=== PATIENT | female | born 1945 | race Caucasian/White ===

== ENCOUNTER 2016-10-27 05:41 | Day surgery (SDC) | payer MEDICAID, MEDICARE ==
--- NOTE | 2016-10-16 11:48 | PCM.ANEPRE ---
Anesthesia Pre-Op Review Reason for Review: SURGEON'S REQUEST-"REVIEW PAST SLEEP STUDY RECORD" Anesthesia Recommendations: Proceed with Procedure Additional Comments 71myo woman for bilat lum blair by dr cuevas on 10/27/16. Positive stop bang, Sleep study showed mod obstrucive sleep apnea with disturbance of sleep architecture and clinically significant o2 desaturation events. Refuses to use recommended cpap. ecg shows NSIVCD Cardiac cath 2003 with nl coronaries with elevated filling pressures and diastolic dysfunction, and a small hyperdynamic heart. BMI 37. HgbA1C 6.7. METS are not available because ambulatory limitations secondary to back pain. Suggest ECHO before surgery to assess cardiac function since last study was a cath in 2003. Discussed with Roman Matt who will order the echo and we will then review it before decision to proceed. Chart Reviewed by: Feliz Hull MD, MD Oct 16, 2016 11:48
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
[2016-10-27] VITALS (14 sets, daily range): BP systolic 119–177; BP diastolic 49–77; PULSE 55–74; RESP 16–24; O2SAT 89–100
[~2016-10-27] VITALS: Ht 157.5 cm; Wt 93.2 kg
[~2016-10-27 05:41] MED LIST: ASPI-973 PO; CYCL10TA9 PO; FLUO40CA PO; GABA600T2 PO; HYDR-3740 PO; HYDRALAZINE/HCTZ PO; LISI40TA PO; Lactated Ringer's 1,000 ML IV SCH; METF1000 PO; METO-274 PO; OMEP20CA11 PO; OXYC-466 PO; SIMV40TA5 PO
[2016-10-27] MEDS ORDERED: Ondansetron 2 mg/mL 2 mL Inj ONE (05:42)
[2016-10-27] MEDS ORDERED: Propofol 10,000 mCg/mL 20 mL Inj ONE (05:42)
[2016-10-27] MEDS ORDERED: fentaNYL-PF 50 mCg/mL 2 mL Inj ONE ×2 (05:42→10:38)
[2016-10-27] MEDS ORDERED: Succinylcholine Chloride 20 mg/mL 5 mL Inj ONE (05:42)
[2016-10-27] MEDS ORDERED: Phenylephrine/NS 100 mCg/mL 10 mL Syringe IVPUSH ONE (05:42)
[2016-10-27] MEDS ORDERED: Bupivacaine Liposome 1.3% 20 mL Inj INFILTRATE ONE (06:00)
[2016-10-27] MEDS ORDERED: CeFAZolin Inj 2 GM in IV Premix 1 EACH IV ONE (06:00)
[2016-10-27] MEDS: Bacitracin 50,000 unit Inj IRRIGATION SCH ×2 (06:43→08:11)
[2016-10-27] MEDS: Thrombin Powder 5,000 Unit TOPICAL SCH ×2 (06:44→08:12)
[2016-10-27] MEDS ORDERED: Lactated Ringer's 1,000 ML IV ONE ×3 (06:46→09:28)
[2016-10-27] MEDS ORDERED: TIZA4TAB4 PO (07:07)
[2016-10-27] MEDS ORDERED: HYDR25TA4 PO (07:07)
--- NOTE | 2016-10-27 07:22 | PCM.HPANE ---
Patient Data Surgeon Admitting Provider: Attending Provider:Toni Butcher MD Primary Care Physician:Aman Pelayo MD Other Provider:[facility] Reason for Visit Lumbar Stenosis With Neurogenic Claudication Ht/WT & BMI Height (Feet): 5 Height (Inches): 2 Weight (Kilograms): 93.168 Body Mass Index 37.00 Allergies Coded Allergies: No Known Allergies (Verified , 10/15/16) Past Anesthesia History Anesthesia History: Denies:: Anesthesia Reactions, Malignant Hyperthermia Diabetes History Hx Diabetes?: Yes Type of Diabetes: Type II Glycemic Control: Oral Medication Current Bedside Blood Glucose: 121 MRSA MRSA: No Medications Blood Thinner: Aspirin Hypertension Medication: Yes (HYDRALAZINE/HCTZ,LISINOPRIL) Home Meds Incl Beta Cristy: Yes Date Beta Cristy Taken: Oct 27, 2016 Time Beta Cristy Taken: 0400 Reported Medications Tizanidine 4 Mg Tablet4 Mg PO BID 10/27/16 Hydrochlorothiazide 25 Mg Szmiex81 Mg PO DAILY 30 Days Ref 0 10/27/16 Metformin (Glucophage)1,000 Mg Tablet1,000 Mg PO DAILY Ref 0 10/26/16 Simvastatin 40 Mg Rggnre72 Mg PO HS 30 Days Ref 0 10/15/16 oxyCODONE-Acetaminophen 10-325 mg 1 Each Tablet1-2 Tablet PO Q4H PRN For Pain Ref 0 10/15/16 Omeprazole 20 Mg Capsule.dr20 Mg PO DAILY Ref 0 10/15/16 Metoprolol Succinate ER 100 Mg Tab.er.[id number] Mg PO BID Ref 0 10/15/16 Lisinopril 40 Mg Kijfep18 Mg PO DAILY 30 Days Ref 0 10/15/16 Fluoxetine 40 Mg Snmmjjz14 Mg PO DAILY Ref 0 10/15/16 Aspirin 81 Mg Tbbtwh12 Mg PO DAILY Ref 0 10/15/16 Cyclobenzaprine 10 Mg Fnjrgs10 Mg PO TID PRN Spasm 10/15/16 Hydrocodone-Acetaminophen 10-325 mg 1 Each Tablet1 Tablet PO Q4-6H PRN For Pain Ref 0 10/15/16 Gabapentin 600 Mg Owcjms633 Mg PO TID Ref 0 10/15/16 Discontinued Reported Medications [Hydralazine/Hctz] No Conflict Check1 Tab PO DAILY 50MG/50MG 10/15/16 Metformin (Glucophage)1,000 Mg Tablet1,000 Mg PO BID Ref 0 10/15/16 History History of ENT Problems?: Yes HEENT History: Positive for:: Hearing Problem Denture Type: Full- Upper Hx of Heart Problems?: Yes Cardiovascular History: Positive for:: Cardiac Surgery (HEART CATH 03/2004-WNL ) Edema Hypertension (HYPERLIPIDEMIA) Valvular Heart Disease (MILD-MOD MR,MILD AR,TR) Denies:: Congestive Heart Failure Heart Murmur (NONE HEARD, BUT PT RELATES HX OF MURMUR ECHO 10/19/16 EF 60-65 %) Other History/Comments echo reviewed, EF 65%, Cardiac ROS negative Hx of Respiratory Problem?: Yes Respiratory History: Positive for:: Cough (PT REPORTS URI (CONGESTION,COUGH, SINUS) 10/13/16) Use of C-PAP Machine ([facility]+ REFUSES CPAP SLEEP STUDY 02/2001) Denies:: Tuberculosis Other History/Comment resolving URI one week ago, no symptoms currently Hx Neurologic Problems?: Yes Neurological History: Positive for:: Dizziness (ED VISIT 08/2016 FOR NEAR SYNCOPE RESOLVED W/ IV HYDRATION) Headaches Other Neurological Pertinent: HX OF CHRONIC PAIN SYNDROME W/ VISITS TO PAIN CLINIC IN THE PAST ([facility]?) Hx of GI Problems?: Yes Gastrointestinal History: Positive for:: Gastroesphageal Reflux Hx of Problems?: Yes Other Pertinent History: C/OF [place] Female Hx: Denies:: Currently (HYSTERECOMY AT AGE 37) Skin History: Positive for:: History Skin Disorders? (S/P EXC SKIN MELANOMA) Denies:: Pressure Ulcers Hx Musculoskeletal Problems?: Yes Musculoskeletal History: Positive for:: Fibromyalgia Osteoarthritis Hx of Psycho/Social Problems?: Yes Psycho Social History: Positive for:: Anxiety Hx Depression Hx Surgeries?: Yes (C5-7 ACDF,EXC SKIN MELANOMA,HYST) Hx Any Other Health Problems?: Yes Other History: Positive for:: Cancer (SKIN MELANOMA) Hospitalization Denies:: Endocrine Disease Thyroid Disease History Blood Transfusions: Denies:: Blood Transfusions Hx Diabetes: YesBedside Blood Glucose: 121 Hx Alcohol Use: NoHx Substance Use: No Smoking Status: Former Smoker Have You Smoked inLast 12 mo: YesApprox How Many Cigarettes/day: 1/2 PPD Stop/Bang Treated for Sleep Apnea?: Yes Do You Have a CPAP Machine?: No S-Snoring: Do You Snore Loudly: No T-Tired: feel tired, fatigued: Yes O-Obsered: Observed not breath: No P-Blood Pressure: treated: Yes B- Body Mass Index > 35 kg/m2: Yes A- Age over 50: Yes N- Neck Large Circumference: No G- Gender Male: No KEVIN Total Score: 4 Risk Assessment Category Category 1A: Patient has history of documented sleep apnea, and HAS NOT received any narcotic, sedative or anesthesia administration during this stay. Category 1B: Patient has history of documented sleep apnea, and HAS received any narcotic , sedative or anesthesia administration during this stay Category 2: Patient has SUSPECTED Obstructive Sleep Apnea, and HAS received any narcotic , sedative or anesthesia administration during this stay. Category 3: Patient has SUSPECTED Obstructive Sleep Apnea and HAS NOT received narcotic, sedative or anesthesia administration during this stay. Category 4: Outpatient in Procedural Areas with known sleep apnea or who screen positive for High Risk via the STOP/BANG questionnaire. Exam Exam Vital Signs Vital Signs Date Time Temp Pulse Resp B/P Pulse Ox O2 Delivery O2 Flow Rate FiO2 10/27/16 06:20 72 19 177/62 92 Room Air General Appearance: Alert, Oriented X3, Cooperative HEENT/AIRWAY: MP 2 Lungs: Clear to Auscultation Heart: Exam Unremarkable, Regular Rate/Rhythm Meds/Labs/Diagnostics Admission Meds Current Medications Lactated Ringer's (Lr) 1,000 ml @ ud STK-MED ONCE IV Last administered on t 06:46; Start 10/27/16 at 06:46; Stop 10/27/16 at 06:47; Status DC Bedside Blood Glucose: 121 Plan Impression Patient chart reviewed, patient interviewed and anesthestic plan with risks, benefits, and alternatives discussed, and informed consent obtained. NPO Status: 10/28 ASA Physical Status: ASA3 Severe Disease Anesthetic Support Modalities: [place] Scope Anesthetic Plan: GA Bene/Risks/Altern/Consents: Yes HP Complete Prior to Induction: Yes Rodney Haskins MD Oct 27, 2016 07:22
[2016-10-27] MEDS ORDERED: Gelatin Sponge 12-7 MM TOPICAL ONE ×2 (08:12)
[2016-10-27] MEDS ORDERED: Bupivacaine-MPF 0.25%/EPI 30 mL Inj INJ ONE (08:12)
[2016-10-27] MEDS ORDERED: Lactated Ringer's 500 ML IV PRN (08:31)
[2016-10-27] MEDS ORDERED: Lactated Ringer's 1,000 ML IV SCH (08:31)
[2016-10-27] MEDS ORDERED: MetoCLOpramide 5 mg/mL 2 mL Inj IVPUSH PRN (08:35)
[2016-10-27] MEDS ORDERED: Dexamethasone 4 mg/mL Inj IVPUSH PRN (08:35)
[2016-10-27] MEDS ORDERED: Ondansetron 2 mg/mL 2 mL Inj IVPUSH PRN ×2 (08:35→09:27)
[2016-10-27] MEDS ORDERED: EPHEDrine Sulfate 50 mg/mL Inj IVPUSH PRN (08:35)
[2016-10-27] MEDS ORDERED: Phenylephrine 10,000 mCg/mL Inj IVPUSH PRN (08:35)
--- NOTE | 2016-10-27 08:42 | DRSVH ---
PROCEDURE: X-RAY LUMBAR SPINE, 1 VIEW INDICATIONS: L3-4/L4-5 LAMINECTOMIES TECHNIQUE: 1 views of the lumbar spine were acquired. COMPARISON: [facility], CR, CHEST 1VW (PORTABLE), 08/21/2011, 19:06. [facility], CR, SPINE THORACIC 2VW, 08/21/2011, 19:33. [facility], CR, SPINE LUMB 2 OR 3VW, , 20:30. [facility], MR, MR LUMBAR SPINE WO CON, 04/09/2016, 10:43. FINDINGS: Crosstable lateral lumbar spine demonstrates a radiopaque surgical probe projected over the posterior elements localizing the L4-L5 posterior disc interspace for operative planning. IMPRESSION: Lumbosacral transitional anatomy is present with transitional S1 vertebral body. Surgical localization over the posterior elements at the L4-L5 level. Dr. Butcher given results at 0825 hrs. 10/27/2016. Dictated by: Guillermo Jacobo [facility] Interpreted: Chato Jorge MD on 10/27/2016 at 8:39 Transcribed by: MARINO on 10/27/2016 at 8:41 Approved by: Chato Jorge M.D. on 10/27/2016 at 19:12
[2016-10-27] MEDS ORDERED: Bupivacaine 0.5%/EPI 50 mL Inj INFILTRATE ONE (08:45)
[2016-10-27] MEDS ORDERED: Glucose 40% Oral Gel 15 Gm Tube PO PRN (09:25)
[2016-10-27] MEDS ORDERED: Magnesium Hydroxide 10 mL Oral Concentration PO PRN (09:27)
[2016-10-27] MEDS ORDERED: Polyethylene Glycol (PEG) 17 Gm Powder PO PRN (09:27)
[2016-10-27] MEDS ORDERED: Senna-Docusate 8.6-50 mg Tablet PO PRN (09:27)
[2016-10-27] MEDS ORDERED: Sodium Biphos-Phos 133 mL Enema RECTAL PRN (09:27)
--- NOTE | 2016-10-27 09:29 | PCM.ANEP1 ---
Post Anesthesia Phase 1 PACU Phase 1 Assessment Date of Service: Oct 12, 2016 Vital Signs Vital Signs Date Time Temp Pulse Resp B/P Pulse Ox O2 Delivery O2 Flow Rate FiO2 10/27/16 06:20 72 19 177/62 92 Room Air Anesthetic Administered: GA Level of Alertness: Sleepy, easy to arouse KIRK's with Equal Strength: Yes Pain: No Nausea or Vomiting: No Oxygen Delivery: Simple Mask Lungs: Clear to Auscultation Dermatome Level: Full Sensation (fs 139) Rodney Haskins MD Oct 27, 2016 09:29
[2016-10-27] MEDS: Acetaminophen IV 1,000 MG in IV Premix 1 EACH IV SCH ×3 (09:30→23:11)
[2016-10-27] MEDS ORDERED: Promethazine 12.5 mg/50 mL-NS 12.5 MG in IV Premix 1 EACH IV PRN (09:30)
[2016-10-27] MEDS: HYDROmorphone 1 mg/mL Inj IVPUSH PRN ×4 (09:46→23:48)
--- NOTE | 2016-10-27 09:47 | OP ---
[address] [address] OPERATIVE REPORT PATIENT: JAMILAH HERNÁNDEZ : 1945 MR#: [id number] ADMIT: 10/27/2016 JOB ID: [id number] DATE OF SURGERY: 10/27/2016 SURGEON: Toni Butcher MD PREOPERATIVE DIAGNOSIS(ES): Bilateral L4-5 and left L5-S1 stenosis. POSTOPERATIVE DIAGNOSIS(ES): Bilateral L4-5 and left L5-S1 stenosis. PROCEDURE: Bilateral L4-5 and left L5-S1 partial laminectomy, medial facetectomy, and foraminotomy with microdissection, harvest of subcutaneous fat through separate incision for epidural fat graft. [employer] MEMBER: [employer] provided irrigation, retraction, resection and was medically necessary for the procedure. OPERATIVE PROCEDURE: Patient was brought to the operating room. General anesthesia with oral intubation was administered. The patient was positioned prone on a laminectomy frame. All extremities were padded. Compression boots were applied to the legs. Time-out was performed. The back was prepped and draped in a sterile fashion. IV Ancef was given. The skin and paraspinal muscles were injected with Marcaine containing epinephrine. Under image guidance with x-ray images a midline incision was made from L4-S1. Incision was carried down to the subcutaneous fat layers and on the left side of the L4 and L5 spinous processes. Paraspinous muscles were stripped off the left side of the spine and additional imaging was taken to confirm the levels. The patient's consent read L3-4 and left L4-5 stenosis, however the patient had an extra lumbar vertebrae and a fully formed L5-L6 disc space and so in conference with the reading radiologist during the procedure the operating segments and areas that contained pathology were bilateral L4-5 and left L5-S1. High speed bur was used to remove the inferior portion of the left L4 and left L5 elizabeth-lamina and a few mm of the medial facet under the operating microscope. The final outer bone was removed with Kerrison rongeur. The yellow ligament was opened with a curette and resected with a curette and Kerrison rongeur. Hypertrophied medial facet and yellow ligament was removed and the lateral recess at L4-5 and L5-S1 was decompressed and the proximal foramina for the left L4 and L5 nerve root were also decompressed. The operating table was then tilted to look to the opposite side at the L4-5 level. Spinous process was undercut with a high-speed bur, and then Kerrison rongeur and curette were used to remove the yellow ligament and hypertrophied medial facet all the way out to the right L4-5 lateral recess and the right L5 nerve root was decompressed. Hemostasis was obtained with bipolar cautery and Gelfoam soaked in thrombin. A separate incision was made just inferior to the primary incision, but contiguous with this and a piece of subcutaneous fat was harvested and this was split in 2 and placed on the laminotomy defect, suspected adhesive barrier. Exparel and liposomal bupivacaine was injected after dilution into the paraspinal muscles and subcutaneous tissue. The wound was closed with 0-Vicryl fascia, 2-0 Vicryl subcutaneous tissue, and 4-0 Vicryl subcuticular in the skin. Steri-Strips and sterile dressing were applied. The patient was turned supine, extubated, and brought to recovery room in stable condition. There were no complications. ESTIMATED BLOOD LOSS: 30 cc.
[2016-10-27] MEDS: fentaNYL-PF 50 mCg/mL 2 mL Inj IVPUSH PRN ×2 (10:50→13:45)
--- NOTE | 2016-10-27 11:10 | PCM.ANEP2 ---
Post Anesthesia Evaluation ASA/CMS Post Anesthesia VS in Patient's Normal Range?: Yes Resp Stable; Airway Patent?: Yes CV Function & Hydration Stable: Yes Mental Status Recovered?: Yes Pain control Satisfactory?: Yes N/V Control Satisfactory?: Yes Rodney Haskins MD Oct 27, 2016 11:10
[2016-10-27] MEDS: Insulin LISPRO 300 Unit/3 mL Inj SUBQ SCH ×3 (12:00→22:00)
[2016-10-27] MEDS: hydrOXYzine Pamoate 25 mg Capsule PO PRN (13:30)
[2016-10-27] MEDS ORDERED: HYDROmorphone 1 mg/mL Inj ONE (15:14)
[2016-10-27] MEDS: 0.9% Sodium Chloride 1,000 ML IV SCH ×2 (16:31→18:33)
--- NOTE | 2016-10-27 18:39 | NUR ---
post op pt arrived on [facility] at 1610, Dressing C/D/I, mild numbness in feet, pt stated baseline but mildly better then before surgery. complaining of 6/10 pain, administered Flexural with minimal improvement, administered 1mg IV Dilaudid and IV Tylenol, pt pain well controlled now. see post op assessment, care continued.
[2016-10-27] MEDS: Senna-Docusate 8.6-50 mg Tablet PO SCH (19:48)
[2016-10-27] MEDS: MeTOProlol XL 50 mg ER24 Tablet PO SCH (19:49)
--- NOTE | 2016-10-27 19:58 | NUR ---
Pain Pt states her incisional pain is a 6. Given 2 tabs of oxycodone Pt able to move in bed with assistance. Neuro grossly intact. Care ongoing
[2016-10-28 00:26] VITALS: BP 102/63; PULSE 64; RESP 18; O2SAT 95
--- NOTE | 2016-10-28 02:44 | NUR ---
Pain Pt c/o back incision pain 5/10 with movement. IV Dilaudid given with good effect and the Pt was able to transfer to [facility]. Moves all extremities and tolerated activity well. Will continue to monitor for discomfort.
[2016-10-28] MEDS: 0.9% Sodium Chloride 1,000 ML IV SCH ×2 (03:26→12:45)
[2016-10-28] MEDS: Acetaminophen IV 1,000 MG in IV Premix 1 EACH IV SCH ×2 (03:26→09:30)
[2016-10-28] MEDS: HYDROmorphone 1 mg/mL Inj IVPUSH PRN ×2 (04:03→08:12)
[2016-10-28 04:33] VITALS: BP 147/72; PULSE 88; RESP 18; O2SAT 93
[2016-10-28] MEDS ORDERED: Pantoprazole 40 mg ER24 Tablet PO SCH (06:30)
[2016-10-28] MEDS: Insulin LISPRO 300 Unit/3 mL Inj SUBQ SCH ×2 (08:00→12:00)
[2016-10-28] MEDS: MeTOProlol XL 50 mg ER24 Tablet PO SCH (08:16)
[2016-10-28] MEDS: Senna-Docusate 8.6-50 mg Tablet PO SCH (08:16)
[2016-10-28] MEDS ORDERED: Lisinopril 40 Tablet PO SCH (08:30)
[2016-10-28 09:47] VITALS: BP 139/68; PULSE 73; RESP 20; O2SAT 96
--- NOTE | 2016-10-28 10:32 | PCM.DISURG ---
Surgical Discharge Instruction Date of Service Oct 28, 2016 Dates of Hospitalization Date of Hospital Admission 10/27/2016 outpatient with a bed status Providers Admitting Physician: Primary Care Physician: Aman Pelayo MD Attending Physician: Toni Butcher MD Discharge Diagnosis Discharge Diagnosis Status post Bilateral L4-5 and left L5-S1 partial laminectomy, medial facetectomy, and foraminotomy with microdissection, harvest of subcutaneous fat through separate incision for epidural fat graft. Post Operative diagnosis Status post Bilateral L4-5 and left L5-S1 partial laminectomy, medial facetectomy, and foraminotomy with microdissection, harvest of subcutaneous fat through separate incision for epidural fat graft Additional Instructions Discharge Instructions Lumbar Spinal Decompression Surgery Instructions What is my recovery like? The hospital stay is usually overnight with discharge the next day. A lumbar brace is worn for comfort only. What are my restrictions? You should not lift anything heavier than five pounds. You should not perform any excessive bending from the waist or twisting movements. Can I Shower? You may shower when you go home. You must remove the outside dressing on the 7th day after surgery, or change as needed if soiled or saturated (replacing new sterile gauze & water proof dressing) otherwise leave alone. The remaining small pieces of tape (steri-strips) directly on top of the incision may get wet. The steri-strips will fall off on their own. Can I drive? No, you should not drive until specifically given permission from your Doctor in a follow up appointment. Most Patient's can drive in 2-3 weeks if they are not taking narcotic pain medications or muscle relaxers. You may ride in a car, but should avoid trips longer than two hours in duration. When can I return work / sports? Your Doctor will discuss your return to work with you on your first postoperative follow-up appointment. Most patients may return to work within 2 weeks for sedentary jobs. More physically demanding jobs may require 3-6 months of healing before such work can be considered. When should I call the doctor? You should call your Doctor or go to the Emergency Department if you develop oversedation, chest pain, shortness of breath, a temperature greater than 101.5 F, severe uncontrolled pain or weakness, loss of bowel or bladder function, choking, lots or drainage, pus discharge or constipation. Instructions Regarding Comfort & Pain Medication Use: During the recovery period, even with the use of pain medication, you may experience pain at the site of surgery. You may also have the same type of pain you had before surgery. Please use your pain scale as a guide for taking your pain medication. When your pain is greater than 4 out of 10, or when your pain reaches your personal tolerable level of pain, take your pain medication as prescribed. Use your pain medication on an 'as needed' basis. This means if your pain level is within your tolerable level of pain you DO NOT need to take the medication. As you get better, you will notice you can increase the time interval between doses and decrease the number of tablets you are taking, gradually taking less and less pain medication. Taking pain medication when it is not necessary (for example when your pain is tolerable or acceptable) can result in dangerous side effects and over- sedation. Signs and symptoms of over-sedation include: drowsiness, excessive sleeping, slow or difficult breathing, slurred speech, impaired thinking, confusion, impaired motor coordination. If you have any of these symptoms stop taking the medication and immediately contact your doctor. IF SYMPTOMS ARE LIFE THREATENING CALL 911. To decrease pain and swelling, frequently apply an ice pack for 20 min intervals with at least one hour off. When to take Acetaminophen for pain? If you don't have liver problems, allergies and/or Tylenol is not in your current pain medication. Take Extra Strength Tylenol 500mg 2 tabs by mouth every 6 hours as needed for pain. DO NOT EXCEED 8 TABS PER DAY. Please minimize all of your narcotic pain medication e.g. Percocet or Oxycodone/ Acetaminophen use taking only 1/2 to 1 pill at a time. Follow Up Plan Follow Up Plan 1. Please follow up with physician certified physician assistant in outpatient neurosurgical clinic in 1 week for wound check. 2. Please follow up with Primary Care Provider if necessary for Obstructive Sleep Apnea & we will send new referral to sleep medicine. Follow-up Provider (F9): Roman Matt PA-C Additional Information Attending Statement All documentation reviewed & orders authorized by Dr. Toni Butcher M.D. Roman Matt PA-C Oct 28, 2016 10:32
[2016-10-28] MEDS ORDERED: OXYC-466 PO (10:35)
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
[2016-10-28] MEDS: hydrOXYzine Pamoate 25 mg Capsule PO PRN (12:01)
[2016-10-28 12:11] VITALS: BP 122/68; PULSE 67; RESP 18; O2SAT 92
--- NOTE | 2016-10-28 13:43 | NUR ---
home oxygen eval room air at rest sat of 96% room air with activity sat of 93% pt does not qualify for home 02
--- NOTE | 2016-10-28 15:15 | NUR ---
discharge Orders to discharge pt to home today if pain controlled on po pain medication, O2 sats okay on room air and assessed by RT for home O2 needs and if ambulating. Pt medicated with prn oxycodone for pain, flexeril and vistaril for spasms, scheduled tylenol. Pt reports pain medications helping and able to ambulate in hallway with PT and also again with RT for home O2 assessment, per RT, pt maintained O2 sats on room air in the mid 90's. Dressing to back changed per specific MD instructions. SOn to drive pt home, pt states she has a FWW at home. [facility] to f/u with pt for HHPT. Reviewed discharge instructions and medications with pt, pt already has filled her Rx prior to surgery and it is at home, no new prescriptions given here. SPecific lumbar spinal surgery instructions reviewed with pt per MD orders. Care notes also provided on laminectomy, sleep apnea and percocet. Pt to f/u with CHERRIE at neurosurg clinic in 1 week, given phone number and pt instructed to call for appt. Pt also to f/u with PCP for referral for sleep study for her sleep apnea, phone number provided and pt instructed to call. Escorted out in stable condition via wheelchair with [employer] with all belongings, son to drive her home. Discharged to home at 1512.
--- NOTE | 2016-10-28 15:42 | NUR ---
Social Work Initial Assessment and Discharge: SW met with patient and son Paco at bedside to discuss discharge plan. Patient is a 71 year old female admitted under [facility] for lumbar stenosis with neurogenic claudica. Patient payer as Medicare and Medicaid. Patient has no prison disability nor VA benefits. Patient PCP as MD Pelayo. Patient resides in [facility] alone and will be residing with daughter Bruna, upon discharge who to assist with care needs. Patient pharmacy of choice as [facility]. Patient has no previous HHC or SNF history. Patient has a walker and cane at home. Patient has AD at home and SW encouraged patient to bring in from home. SW discussed discharge recommendations for [facility] services. Patient and son states being in agreement. HH choice list provided and declined. Patient states preference as any in network [facility] company. Referral sent to [facility], as agency is selected provider week. Face to face and access provided to [facility]. STOC to begin 24-48hrs following discharge. No other needs identified at this time. SW to follow as further needs arise. PLAN: Home with daughter support and HHC via [facility]. Son to provide transport at discharge. SW to follow. Son SHAH Addendum: 10/28/16 at 1551 by ANNMARIE LUNDBERG Amended: Links added.
== END 2016-10-28 15:13 | disposition home or self-care (01) ==
LOC: SAS 05:41 → OSC 16:15 → SAS 10-28 15:13
PROVIDERS: ATTEND Neurological Surgery
DX: M48.06 Spinal stenosis, lumbar region (principal); M48.07 Spinal stenosis, lumbosacral region; I10 Essential (primary) hypertension; E11.9 Type 2 diabetes mellitus without complications; G47.33 Obstructive sleep apnea (adult) (pediatric); K21.9 Gastro-esophageal reflux disease without esophagitis; M79.7 Fibromyalgia; F41.8 Other specified anxiety disorders; E78.5 Hyperlipidemia, unspecified; E03.9 Hypothyroidism, unspecified; Z79.82 Long term (current) use of aspirin; Z79.84 Long term (current) use of oral hypoglycemic drugs
CPT/HCPCS: 63047; 63048; 72020; 94640; 97162; J0131; J0330; J0690; J1170; J1815; J2250; J2370; J2405; J3010; J7030; J7120; Q0177